=== PATIENT | female | born 1950 | race Caucasian/White ===

== ENCOUNTER 2022-07-12 13:16 | Inpatient (IN) | payer OTHER, SELFPAY ==
[2022-07-12 13:18] VITALS: BP 156/72; PULSE 76; RESP 14; TEMP 36.8; O2SAT 98; BMI 23.6
--- NOTE | 2022-07-12 13:42 | CT_ITS ---
HISTORY: Abdominal pain. TECHNIQUE: Helically acquired images were obtained of the abdomen and pelvis after the intravenous administration of 100mL Isovue-370. Oral contrast also administered. A radiation dose optimization technique was used for this scan. 357 images. COMPARISON: None. FINDINGS: LOWER CHEST: Bronchiectasis, mucous plugging, and multiple pulmonary nodules in the lung bases. BOWEL: Bowel including appendix nondilated. Colonic diverticulosis without focal inflammatory change observed. LIVER: Small cyst and calcifications at the tip. GALLBLADDER/BILIARY TREE: Moderate intrahepatic biliary ductal dilatation. Severely distended gallbladder and mildly dilated cystic duct. Mild pericholecystic fluid and nichole hepatis edema. 15 mm common bile duct with a 9 mm density in the distal duct. PANCREAS: Mild peripancreatic edema without necrosis or fluid collection. KIDNEYS: No hydronephrosis. Tiny bilateral cysts. SPLEEN/ADRENAL GLANDS: Unremarkable. VESSELS: No abdominal aortic aneurysm. Mild atherosclerosis. PELVIC ORGANS: Absent uterus. BONES: Moderate scoliosis. Degenerative change. CT/Abdomen/Pelvis WITH Contrast IMPRESSION: Moderate-severe biliary dilatation secondary to a 9 mm stone or mass in the distal common duct. Dilated gallbladder and cystic duct with pericholecystic fluid and edema in the nichole hepatis, suggesting acute cholecystitis. Mild acute pancreatitis. Colonic diverticulosis without acute diverticulitis. Small hepatic and renal cysts. Electronically Signed: Lily Diallo MD at 16:05 EDT ,
--- NOTE | 2022-07-12 13:44 | EX.ED.DYSGE1 ---
HPI History of Present Illness Chief Complaint: Abd Pain Informant: patient Onset/Context/Timing Onset: Days (3 days, worse today) Current Severity: Moderate Maximum Severity: Moderate Narrative Narrative: Patient presents with lower abdominal pain that wraps around to her back. Pain started 3 days ago but got significantly worse last evening and this morning. She does report some intermittent fever at home up to 101. No chest pain, cough, congestion. She denies nausea or vomiting. She has had increased urinary frequency. She was seen at the clinic in [place] where lab work was obtained. She states that she was told she had a mild UTI and was given with a believe is Bactrim. Patient's potassium returned at 2.7 and her liver function tests are elevated so she was sent to the emergency room. [facility] Medical History (Updated 07/12/22 @ 22:[address] Katja Laird MD) Cholelithiasis with cholecystitis and obstruction Hyperlipidemia Hypertension Post-menopausal Home Medications triamterene 37.5 mg-hydrochlorothiazide 25 mg tablet (Maxzide-25mg) 1 tab PO DAILY heart 07/12/22 [History Last Taken Unknown] Allergy/AdvReac Type Severity Reaction Status Date / Time No Known Allergies Allergy Verified 07/12/22 13:17 Surgical History History of History of hysterectomy Social History Smoking Status: Never smoker ROS ROS ED Constitutional Constitutional ED: Reports fever(s); Denies chills Eyes Eyes: Denies change in vision or discharge from eye(s) ENT ENT ED: Denies discharge from eye(s), rhinorrhea or sore throat Cardiovascular Cardiovascular: Denies chest pain or palpitations Respiratory/Chest Respiratory/Chest: Denies cough or dyspnea Gastrointestinal Gastrointestinal: Reports abdominal pain; Denies diarrhea, nausea or vomiting Genitourinary Genitourinary ED: Reports urinary frequency; Denies difficulty urinating or dysuria Musculoskeletal Musculoskeletal: Reports back pain; Denies extremity pain Integumentary Denies Abrasions or rash Neurologic Neurologic: Denies headache(s) or weakness Psychiatric Psychiatric: Denies anxiety or depression Allergic/Immunologic Allergic/Immunologic ED: Denies lip swelling or urticaria EXAM Physical Exam Const Vital Signs: 07/12/22 13:18 07/12/22 14:09 07/12/22 16:56 Temperature 98.3 F Temperature Source Temporal Pulse Rate 76 87 97 Respiratory Rate 14 14 14 Blood Pressure 156/72 H 153/75 H Blood Pressure Mean 100 101 Pulse Ox 98 99 94 Oxygen Delivery Method Room Air Room Air Room Air Positive well nourished and well developed General Appearance ED: well developed HEENT Reports normocephalic and head/scalp atraumatic Eyes PERRL and EOMs intact bilaterally Neck supple Chest Wall inspection of chest normal and palpation of chest normal Resp normal respiratory effort and clear to auscultation bilaterally Cardio regular rate and regular rhythm GI Auscultation: hypoactive bowel sounds Palpation: soft and tender LLQ and RLQ Extremity normal to inspection Neuro oriented x3 and no sensory deficits noted Sensorium / Orientation: alert Motor Exam: strength 5/5 throughout Psych mental status grossly normal Skin no rashes or lesions noted MDM MDM MDM Narrative Medical decision making narrative: EKG, lab work, CT scan of the abdomen pelvis obtained. Urinalysis ordered. Patient given small dose of fentanyl for pain. Lab Data Attestation: I reviewed the patient's lab results. Labs: Laboratory Results - last 24 hr 07/12/22 07/12/22 07/12/22 14:06 14:06 14:06 WBC 16.1 H RBC 4.72 Hgb 14.3 Hct 41.7 MCV 88.3 MCH 30.3 MCHC 34.3 RDW Std Deviation 43.4 RDW Coeff of Katherin 13.4 Plt Count 254 MPV 9.6 Immature Gran % (Auto) 0.400 Neut % (Auto) 90.8 H Lymph % (Auto) 4.4 L [place] % (Auto) 4.2 Eos % (Auto) 0.1 Baso % (Auto) 0.1 Absolute Neuts (auto) 14.6 H Absolute Lymphs (auto) 0.71 L Nucleated RBC % 0 Sodium 132 L Potassium 2.3 L* Chloride 91 L Carbon Dioxide 30.0 Anion Gap 11 BUN 12 Creatinine 1.16 H Estim Creat Clear Calc 36.20 Est GFR (MDRD) Af Amer 59 L Est GFR (MDRD) Non-Af 49 L BUN/Creatinine Ratio 10.3 Glucose 110 H Calcium 9.1 Phosphorus 2.3 L Magnesium 2.0 Total Bilirubin 4.60 H Direct Bilirubin 3.44 H AST 145 H ALT 277 H Alkaline Phosphatase 318 H Total Protein 8.1 Albumin 3.3 Globulin 4.8 H Lipase 85721 H Urine Color Urine Clarity Urine pH Ur Specific [place] Urine Protein Urine Glucose (UA) Urine Ketones Urine Occult Blood Urine Nitrite Urine Bilirubin Urine Urobilinogen Ur Leukocyte Esterase Urine RBC Urine WBC Ur Squamous Epith Cells Urine Bacteria WBC Casts Urine Mucus 07/12/22 14:20 WBC RBC Hgb Hct MCV MCH MCHC RDW Std Deviation RDW Coeff of Katherin Plt Count MPV Immature Gran % (Auto) Neut % (Auto) Lymph % (Auto) [place] % (Auto) Eos % (Auto) Baso % (Auto) Absolute Neuts (auto) Absolute Lymphs (auto) Nucleated RBC % Sodium Potassium Chloride Carbon Dioxide Anion Gap BUN Creatinine Estim Creat Clear Calc Est GFR (MDRD) Af Amer Est GFR (MDRD) Non-Af BUN/Creatinine Ratio Glucose Calcium Phosphorus Magnesium Total Bilirubin Direct Bilirubin AST ALT Alkaline Phosphatase Total Protein Albumin Globulin Lipase Urine Color Jana Urine Clarity Clear Urine pH 6.0 Ur Specific [place] 1.015 Urine Protein 30 H Urine Glucose (UA) Normal Urine Ketones 15 H Urine Occult Blood 150 H Urine Nitrite Negative Urine Bilirubin 3 H Urine Urobilinogen 4 H Ur Leukocyte Esterase 500 H Urine RBC 5-10 SEEN Urine WBC 25-50 SEEN Ur Squamous Epith Cells 25-50 SEEN Urine Bacteria 1+ WBC Casts 0-5 SEEN Urine Mucus 0 SEEN Radiography Diagnostic Testing: Clinical Impression(s) from Imaging Studies Abdomen/Pelvis CT 07/12/22 13:42 IMPRESSION: Moderate-severe biliary dilatation secondary to a 9 mm stone or mass in the distal common duct. Dilated gallbladder and cystic duct with pericholecystic fluid and edema in the nichole hepatis, suggesting acute cholecystitis. Mild acute pancreatitis. Colonic diverticulosis without acute diverticulitis. Small hepatic and renal cysts. Electronically Signed: Lily Diallo MD at 16:05 EDT , Treatment and Re-Evaluation Narrative: Patient's lab work returns with elevated white count of 16.1 with 91% neutrophils. Chemistry significant for sodium of 1 32, potassium 2.3, chloride 91. BUN and creatinine are unremarkable. Chemistry studies reveal a total bili of 4.6, direct bili 3.44, AST 145, ALT 277, alk phos 318. Lipase is 17,700. Urinalysis reveals 25-50 white cells with 25-50 epithelials. 1+ bacteria noted. Nitrites are negative. Urine culture was obtained. Patient was given a dose of Zosyn. CT scan reveals moderate to severe biliary dilatation secondary to a 9 mm stone or mass in the distal common duct. There is dilated gallbladder and cystic duct with pericholecystic fluid and edema suggesting acute cholecystitis. There is evidence of mild acute pancreatitis. Test results discussed with patient and family at bedside. I spoke with Dr. Carlos who presented to the emergency room to evaluate the patient. She will be admitted to Dr. Carlos's surface. Discharge Plan Dx/Rx/DC Orders Clinical Impression: Pancreatitis, Hypokalemia Disposition Disposition: Acute Care Hospital [facility] Discharge Date/Time: 07/12/22 18:31
[2022-07-12 14:09] VITALS: BP 153/75; PULSE 87; RESP 14; O2SAT 99
[2022-07-12 14:12] LABS: Absolute Lymphocyte Count 0.71 X10^3/uL (0.83-4.51); Absolute Neutrophil Count 14.6 X10^3/uL (2.0-7.7); Basophil# 0.02 X10^3/uL; Basophil% 0.1 % (0-1); Eosinophil# 0.01 X10^3/uL; Eosinophils% 0.1 % (0-5); Hematocrit 41.7 % (37-47); Hemoglobin 14.3 g/dL (12.0-15.0); Lymphocyte # 0.71 X10^3/ul (0.83-4.51); Lymphocyte % 4.4 % (19-41); Mean Corp Hgb Conc 34.3 g/dL (32-36); Mean Corpuscular Hgb 30.3 pg (27.0-32.0); Mean Corpuscular Volume 88.3 fL (81-99); Mean Platelet Vol. 9.6 fl (6.2-12.0); Monocyte# 0.68 X10^3/uL; Monocyte% 4.2 % (0-10); NRBC Flagged by Analyzer 0 % (0-5); Neutrophil # 14.62 X10^3/uL (2.7-7.7); Neutrophil % 90.8 % (47-70); Platelet Count 254 K/mm3 (150-450); RBC Distribution Width CV 13.4 % (11.6-14.6); RBC Distribution Width SD 43.4 fl (35.1-43.9); Red Blood Count 4.72 M/mm3 (4.2-5.4); White Blood Count 16.1 K/mm3 (4.4-11.0)
[2022-07-12 14:25] LABS: Mucous, Urine 0 SEEN /hpf (<or=2+)
[2022-07-12 14:28] LABS: Color, Urine Amber (Yellow); Glucose, Dipstick Normal (Normal); Ketone-Dipstick 15 mg/dl (Negative); Leukocyte Esterase-Dipstick 500 /ul (Negative); Nitrite-Dipstick Negative (Negative); Occult Blood-Urine 150 /ul (Negative); Protein-Dipstick 30 mg/dl (Negative); Specific Gravity, Urine 1.015 (1.002-1.030); Urine Clarity Clear (Clear); Urine Urobilinogen 4 mg/dl (Normal)
[2022-07-12 14:30] LABS: Urine Bilirubin Dipstick 3 mg/dL (Negative)
[2022-07-12 14:33] LABS: AST(SGOT) 145 U/L (15-37); Alanine Aminotransfer ALT/SGPT 277 U/L (13-56); Albumin, Serum 3.3 g/dL (3.2-5.0); Alkaline Phosphatase 318 U/L (45-117); Anion Gap 11 (5-15); BUN 12 mg/dL (7-18); BUN/Creat Ratio 10.3 RATIO (10-20); Bilirubin, Direct 3.44 mg/dL (0.00-0.30); Calcium,Total 9.1 mg/dL (8.5-10.1); Chloride 91 mmol/L (98-107); Creatinine, Serum 1.16 mg/dL (0.55-1.02); EST Glomerular Filtration Rate 49 mL/min (>60); Est Glom Filt Rate - Afr Amer 59 mL/min (>60); Globulin 4.8 g/dL (2.2-4.2); Glucose 110 mg/dL (74-106); Lipase 17701 U/L (73-393); Potassium 2.3 mmol/L (3.5-5.1); Protein, Total 8.1 g/dL (6.4-8.2); Sodium Level 132 mmol/L (136-145)
[2022-07-12 14:38] LABS: Bacteria 1+ /hpf (None Seen); Red Blood Cells-Urine 5-10 SEEN /hpf (0-5); Squamous Epithelial Cells - UA 25-50 SEEN /hpf (5-10); White Blood Cells 25-50 SEEN /hpf (0-5)
[2022-07-12 14:39] LABS: White Cell Cast 0-5 SEEN /lpf (None Seen)
--- NOTE | 2022-07-12 14:40 | EKG12_ITS ---
Test Reason : Blood Pressure : / mmHG Vent. Rate : 083 BPM Atrial Rate : 083 BPM P-R Int : 154 ms QRS Dur : 082 ms QT Int : 362 ms P-R-T Axes : 003 053 050 degrees QTc Int : 425 ms Normal sinus rhythm with sinus arrhythmia Nonspecific ST abnormality Abnormal ECG Confirmed by KANDIS LY, BROCK ([id number]), book editor BRENDA MCNAMARA ([id number]) on 07/13/2022 1:59:37 PM Referred By: PAULINA Confirmed By:BROCK MARQUIS MD
[2022-07-12] MEDS: fentaNYL 100 MCG/2 ML Ampul 12.5 MCG IV ×2 (14:45→18:05)
[2022-07-12] MEDS: Potassium Chloride 10mEq/100mL 10 MEQ/100 ML IV.SOLN. 100 MEQ IV BOLUS ×4 (15:46→19:23)
[2022-07-12 16:56] VITALS: PULSE 97; RESP 14; O2SAT 94
--- NOTE | 2022-07-12 17:55 | PCM.HP.STD ---
HPI - General General Date of Admission: 07/12/22 Date of Service: 07/12/22 Chief Complaint: abdominal pain HPI Narrative SANDRA WAYNE, is a 71 F who presents with abdominal pain, primarily right sided. She states that she has had severe pain for the past three days with nausea and emesis and elevated temperatures. She presented to a local clinic and was diagnosed with a UTI, but also she was found to have a potassium of 2.7 and elevated LFTs and thus referred to the ED. She states that she has had intermittent abdominal pain for the past year or two. She states that she has had nausea and emesis for several days. She has had no appetite since Wednesday. Workup in [facility] ED - elevated WBC of 16.1K with a left shift, CT scan revealed cholelithiasis and choledocholithiasis [facility] Medical History (Updated 07/12/22 @ 18:[address] Romy Carlos MD) Cholelithiasis with cholecystitis and obstruction Hyperlipidemia Hypertension Home Medications triamterene 37.5 mg-hydrochlorothiazide 25 mg tablet (Maxzide-25mg) 1 tab PO DAILY heart 07/12/22 [History Last Taken Unknown] Allergy/AdvReac Type Severity Reaction Status Date / Time No Known Allergies Allergy Verified 07/12/22 13:17 Surgical History History of History of hysterectomy Social History Smoking Status: Never smoker ROS Constitutional Constitutional: Reports chills, fatigue and fever(s) Eyes Eyes: Denies loss of vision ENT HEENT: Denies neck pain Cardiovascular Cardiovascular: Denies chest pain at rest or palpitations Respiratory/Chest Respiratory/Chest: Denies dyspnea on exertion or productive cough Gastrointestinal Gastrointestinal: Reports abdominal pain and other Details: see HPI Genitourinary Genitourinary: Denies dysuria or hematuria Musculoskeletal Musculoskeletal: Denies abnormal gait Integumentary Integumentary: Denies jaundice Vital Signs Vital Signs Vital Signs: 07/12/22 13:18 07/12/22 14:09 07/12/22 16:56 Temperature 98.3 F Temperature Source Temporal Pulse Rate 76 87 97 Respiratory Rate 14 14 14 Blood Pressure 156/72 H 153/75 H Blood Pressure Mean 100 101 Pulse Ox 98 99 94 Oxygen Delivery Method Room Air Room Air Room Air Weight Weight: 58.6 kg Body Mass Index (BMI) 23.6 Physical Exam Const oriented x3 Resp normal respiratory effort Auscultation: Negative for rales or wheezes Cardio regular rate GI GI Narrative: abdomen is soft but tender on right side to palpation with positive Cassidy's Extremity no clubbing, cyanosis or edema Results Medical Records Data Attestation: I reviewed the patient's medical records Lab / Micro Data Attestation: I reviewed the patient's lab results. Result Diagrams: 07/12/22 14:06 07/12/22 14:06 Labs: Laboratory Results - last 24 hr 07/12/22 14:06: WBC 16.1 H, RBC 4.72, Hgb 14.3, Hct 41.7, MCV 88.3, MCH 30.3, MCHC 34.3, RDW Std Deviation 43.4, RDW Coeff of Katherin 13.4, Plt Count 254, MPV 9.6, Immature Gran % (Auto) 0.400, Neut % (Auto) 90.8 H, Lymph % (Auto) 4.4 L, [place] % (Auto) 4.2, Eos % (Auto) 0.1, Baso % (Auto) 0.1, Absolute Neuts (auto) 14.6 H, Absolute Lymphs (auto) 0.71 L, Nucleated RBC % 0 07/12/22 14:06: Sodium 132 L, Potassium 2.3 L*, Chloride 91 L, Carbon Dioxide 30.0, Anion Gap 11, BUN 12, Creatinine 1.16 H, Estim Creat Clear Calc 36.20, Est GFR (MDRD) Af Amer 59 L, Est GFR (MDRD) Non-Af 49 L, BUN/Creatinine Ratio 10.3, Glucose 110 H, Calcium 9.1, Total Bilirubin 4.60 H, Direct Bilirubin 3.44 H, AST 145 H, ALT 277 H, Alkaline Phosphatase 318 H, Total Protein 8.1, Albumin 3.3, Globulin 4.8 H, Lipase 54754 H 07/12/22 14:20: Urine Color Jana, Urine Clarity Clear, Urine pH 6.0, Ur Specific [place] 1.015, Urine Protein 30 H, Urine Glucose (UA) Normal, Urine Ketones 15 H, Urine Occult Blood 150 H, Urine Nitrite Negative, Urine Bilirubin 3 H, Urine Urobilinogen 4 H, Ur Leukocyte Esterase 500 H, Urine RBC 5-10 SEEN, Urine WBC 25-50 SEEN, Ur Squamous Epith Cells 25-50 SEEN, Urine Bacteria 1+, WBC Casts 0-5 SEEN, Urine Mucus 0 SEEN Radiology Impression Abdomen/Pelvis CT 07/12/22 13:42 IMPRESSION: Moderate-severe biliary dilatation secondary to a 9 mm stone or mass in the distal common duct. Dilated gallbladder and cystic duct with pericholecystic fluid and edema in the nichole hepatis, suggesting acute cholecystitis. Mild acute pancreatitis. Colonic diverticulosis without acute diverticulitis. Small hepatic and renal cysts. Electronically Signed: Lily Diallo MD at 16:05 EDT , Assessment & Plan Assessment/Plan (1) Cholelithiasis with cholecystitis and obstruction: PLAN: Admit for IV hydration, antibiotics, pain medications and bowel rest. Consider ERCP and laparoscopic cholecystectomy in this hospital admission. I have discussed this with patient, her and daughter Will consult Internal medicine for management of patient's hypertension during this hospitalization
[2022-07-12 18:16] VITALS: BP 163/89; PULSE 98; RESP 15; TEMP 36.8; O2SAT 96
[2022-07-12 18:26] VITALS: BMI 10.5
[2022-07-12 18:38] VITALS: BP 123/63; PULSE 104; RESP 18; TEMP 37.9; O2SAT 93
[2022-07-12] MEDS: 0.9% Normal Saline 1,000 ML 125 ML IV (18:50)
[2022-07-12] MEDS: Ketorolac 15 MG/ML Vial IV (18:50)
--- NOTE | 2022-07-12 19:16 | CON.PCM.HO_ITS ---
Assessment & Plan Assessment/Plan (1) Cholelithiasis with cholecystitis and obstruction: PLAN: This 71-year-old female admitted with severe right-sided upper abdominal pain with radiation to right upper back, nausea and fever, CT abdomen findings consistent with acute cholecystitis with choledocholithiasis and mild acute pancreatitis 1. Acute severe cholecystitis and acute pancreatitis due to choledocholithiasis: CT abdomen findings individually reviewed and agreed with the report. Patient is being on surgical service. IV fluid normal saline at 125 mill per hour. Patient is on cefotetan. NPO. Plan is for ERCP tomorrow a.m. when lap vicky on coming Wednesday. Monitor intake and output. Liver chemistry, total bilirubin, leukocytosis with left shift and lipase are elevated. UA is abnormal, but looks contaminated as squamous epithelial cell 25-50 cells, WBC 25-50 cells, RBC 5-10, LE 500 but nitrite negative. Patient does not have dysuria therefore, I do not think patient has UTI 2. Severe hypokalemia: Potassium is 2.3 in ED. On IV KCl 40 mill equivalent bolus. Serum magnesium and phosphorus ordered. Recheck BMP in evening today. 3. Hypertension: At home, patient is on hydrochlorothiazide- triamterene which is held. Blood pressure currently is normal. 123/63, heart rate 104/min patient mild sinus tachycardia due to inflammation, acute cholecystitis, infection and pain. Monitor BP. Hydralazine 5 mg IV every 4 hourly as needed for systolic blood pressure more than 160 mmHg 4. Dyslipidemia: LDL 136 elevated HDL low 39. Patient not on any statin. When patient is allowed oral can start on atorvastatin 40 mg daily. VTE prophylaxis moderate risk Heparin 5000 units subcutaneous 3 times daily. H old the morning dose prior to ERCP on Wednesday and lap vicky on Wednesday Living will/advanced directive/end of life care: Patient does not have living will or advanced directive. Her is next to kin present in the room. After discussion of benefits/risks procedures involved with full code, DNR CC arrest and DNR CC, the patient and her opted for full code. For the present hospitalization, patient and her do want artificial life support including intubation, tube feed, ventilator and/chest compression, central venous catheter, vasopressor and DC shock if needed. They will discuss in detail about future elements of advanced directive in detail with PCP later on. Total time spent in [id number] encounter in discussion of advanced directive 16 minutes. Laboratory Results 07/12/22 14:06: WBC 16.1 H, RBC 4.72, Hgb 14.3, Hct 41.7, MCV 88.3, MCH 30.3, MCHC 34.3, RDW Std Deviation 43.4, RDW Coeff of Katherin 13.4, Plt Count 254, MPV 9.6, Immature Gran % (Auto) 0.400, Neut % (Auto) 90.8 H, Lymph % (Auto) 4.4 L, [place] % (Auto) 4.2, Eos % (Auto) 0.1, Baso % (Auto) 0.1, Absolute Neuts (auto) 14.6 H, Absolute Lymphs (auto) 0.71 L, Nucleated RBC % 0 07/12/22 14:06: Sodium 132 L, Potassium 2.3 L*, Chloride 91 L, Carbon Dioxide 30.0, Anion Gap 11, BUN 12, Creatinine 1.16 H, Estim Creat Clear Calc 36.20, Est GFR (MDRD) Af Amer 59 L, Est GFR (MDRD) Non-Af 49 L, BUN/Creatinine Ratio 10.3, Glucose 110 H, Calcium 9.1, Total Bilirubin 4.60 H, Direct Bilirubin 3.44 H, AST 145 H, ALT 277 H, Alkaline Phosphatase 318 H, Total Protein 8.1, Albumin 3.3, Globulin 4.8 H, Lipase 43999 H 07/12/22 14:20: Urine Color Jana, Urine Clarity Clear, Urine pH 6.0, Ur Specific [place] 1.015, Urine Protein 30 H, Urine Glucose (UA) Normal, Urine Ketones 15 H, Urine Occult Blood 150 H, Urine Nitrite Negative, Urine Bilirubin 3 H, Urine Urobilinogen 4 H, Ur Leukocyte Esterase 500 H, Urine RBC 5-10 SEEN, Urine WBC 25-50 SEEN, Ur Squamous Epith Cells 25-50 SEEN, Urine Bacteria 1+, WBC Casts 0-5 SEEN, Urine Mucus 0 SEEN Clinical Impression(s) from Imaging Studies Abdomen/Pelvis CT 07/12/22 13:42 IMPRESSION: Moderate-severe biliary dilatation secondary to a 9 mm stone or mass in the distal common duct. Dilated gallbladder and cystic duct with pericholecystic fluid and edema in the nichole hepatis, suggesting acute cholecystitis. Mild acute pancreatitis. Colonic diverticulosis without acute diverticulitis. Small hepatic and renal cysts. HPI Consult Data Date of Consult: 07/12/22 HPI Narrative Reason for Consultation: Medical management for severe hypokalemia along with acute cholecystitis, HPI Narrative: SANDRA WAYNE, chioam a 71 F was brought to ED for severe lower abdominal pain, 10/10 intensity continuous since last 3 days started on 07/09 which wraps around the abdomen to the right upper back. Patient states for last 1 month she was having on and off pain moderate intensity, intermittent 5-6/10 intensity and it used to go away spontaneously. At this time the pain is continuous. She also had fever and chills, temperature 101 at home. She went to clinic on [address] and lab work was done. Abnormal lab findings were severe hypokalemia, potassium 2.7, total bilirubin 6.6, elevated liver chemistry, ALT 286, AST 209, alkaline phosphatase 309. Leukocytosis 18.4 thousand, absolute neutrophil 15,000. Besides that patient also has hyponatremia and hypochloremia, 133 and 91 respectively LDL 136, HDL 39, triglycerides 71 and non-HDL 153. In the ED, repeat lab work was done, and lab abnormalities were similar with t otal bili 4.6, direct bilirubin 3.4, hypokalemia, hyponatremia, hypochloremia elevated liver chemistry and leukocytosis with left shift. CT abdomen/pelvis was done which shows moderate to severe biliary dilatation secondary to 900 stone/mass in the distal CBD. Dilated GB and cystic duct with pericholecystic fluid and edema in 4 thighplasty suggesting acute cholecystitis. Mild acute pancreatitis. Colonic diverticulosis without acute diverticulitis. Patient is admitted under surgical service Dr. Carlos and hospitalist asked to manage medical conditions including hypokalemia and hypertension Past medical history: Hypertension, dyslipidemia. Denies cardiac conditions including coronary artery disease, CHF or arrhythmia. Denies pulmonary disease including COPD/asthma. No stroke or peripheral arterial disease. No history of smoking or chronic alcohol use. [facility] Medical History Cholelithiasis with cholecystitis and obstruction Hyperlipidemia Hypertension Home Medications triamterene 37.5 mg-hydrochlorothiazide 25 mg tablet (Maxzide-25mg) 1 tab PO DAILY heart 07/12/22 [History Last Taken Unknown] Allergy/AdvReac Type Severity Reaction Status Date / Time No Known Allergies Allergy Verified 07/12/22 13:17 Surgical History History of History of hysterectomy Social History Smoking Status: Never smoker ROS ROS Narrative Constitutional: Reports fatigue and weakness. Fever and chills HEENT: Reports systems reviewed and no addt'l complaints, except as documented Respiratory/Chest: Denies chest pain, shortness of breath at rest or with exertion Gastrointestinal: Denies vomiting, hematemesis, melena and hematochezia. Rest as described in HPI. No abdominal distention Genitourinary: Denies burning urination or new urinary tract symptoms Musculoskeletal: No joint pain or limited range of motion Neurologic: Denies seizure-like activity. No focal weakness or numbness or tingling skin: No ulcer. No rash Endocrinology: Mild hyperglycemia. Reports systems reviewed and no addt'l complaints, except as documented Hematologic/Lymphatic: Reports systems reviewed and no addt'l complaints, except as documented Rest 14 ROS are negative except as mentioned in HPI Physical Exam Narrative General: Alert, Oriented x3, Cooperative HEENT: Atraumatic, PERRLA, EOMI, Normocephalic Oral: Oral mucosa is dry. No Gingival or Mucosal Lesions/ Ulcerations Neck: Supple, No JVD, Negative Carotid Bruits Lungs: Air entry equal in bilateral lung bases. No crepitation/rhonchi Cardiovascular: Sinus tachycardia, regular rhythm, Normal S1, Normal S2, No murmurs Abdomen: Bowel Sounds Present, tenderness over right upper and lower quadrant and right upper back. Mild voluntary guarding. No rigidity. : No renal angle tenderness. No suprapubic tenderness. Extremities: No edema, Capillary Refill Less than 3 Seconds Skin: No rashes, No breakdown Musculoskeletal: No Tenderness to Palpation of Joints or Extremities. ROM full. Neurological: Cranial nerves II-XII grossly intact, DTR 2+/4, no focal neurological deficit. Psych/Mental Status: Normal Affect, Appropriate. Lab / Micro Data Result Diagrams: 07/12/22 14:06 07/12/22 14:06 Labs: Laboratory Results - last 24 hr 07/12/22 14:06: WBC 16.1 H, RBC 4.72, Hgb 14.3, Hct 41.7, MCV 88.3, MCH 30.3, MCHC 34.3, RDW Std Deviation 43.4, RDW Coeff of Katherin 13.4, Plt Count 254, MPV 9.6, Immature Gran % (Auto) 0.400, Neut % (Auto) 90.8 H, Lymph % (Auto) 4.4 L, [place] % (Auto) 4.2, Eos % (Auto) 0.1, Baso % (Auto) 0.1, Absolute Neuts (auto) 14.6 H, Absolute Lymphs (auto) 0.71 L, Nucleated RBC % 0 07/12/22 14:06: Sodium 132 L, Potassium 2.3 L*, Chloride 91 L, Carbon Dioxide 30.0, Anion Gap 11, BUN 12, Creatinine 1.16 H, Estim Creat Clear Calc 36.20, Est GFR (MDRD) Af Amer 59 L, Est GFR (MDRD) Non-Af 49 L, BUN/Creatinine Ratio 10.3, Glucose 110 H, Calcium 9.1, Total Bilirubin 4.60 H, Direct Bilirubin 3.44 H, AST 145 H, ALT 277 H, Alkaline Phosphatase 318 H, Total Protein 8.1, Albumin 3.3, Globulin 4.8 H, Lipase 06573 H 07/12/22 14:20: Urine Color Jana, Urine Clarity Clear, Urine pH 6.0, Ur Specific [place] 1.015, Urine Protein 30 H, Urine Glucose (UA) Normal, Urine Ketones 15 H, Urine Occult Blood 150 H, Urine Nitrite Negative, Urine Bilirubin 3 H, Urine Urobilinogen 4 H, Ur Leukocyte Esterase 500 H, Urine RBC 5-10 SEEN, Urine WBC 25-50 SEEN, Ur Squamous Epith Cells 25-50 SEEN, Urine Bacteria 1+, WBC Casts 0-5 SEEN, Urine Mucus 0 SEEN Radiology Impression Abdomen/Pelvis CT 07/12/22 13:42 IMPRESSION: Moderate-severe biliary dilatation secondary to a 9 mm stone or mass in the distal common duct. Dilated gallbladder and cystic duct with pericholecystic fluid and edema in the nichole hepatis, suggesting acute cholecystitis. Mild acute pancreatitis. Colonic diverticulosis without acute diverticulitis. Small hepatic and renal cysts. Electronically Signed: Lily Diallo MD at 16:05 EDT , Charges/Coding Visit Charges Office Visits / Consults: 12605 OP Consult L4 Procedures Hospitalists Procedures: [id number] Advncd Care Plan 30 Min
[2022-07-12 19:52] LABS: Phosphorus 2.3 mg/dL (2.5-4.9)
[2022-07-12] MEDS: HYDROmorphone 0.5 MG/0.5 ML SYRINGE IV (20:11)
[2022-07-12] MEDS: 0.9% Saline Lock 10 ML Syringe IV (20:11)
--- NOTE | 2022-07-12 21:06 | RAD_ITS ---
STUDY: X-RAY CHEST REASON FOR EXAM: Female, 71 years old. Bronchiectasis, pre op TECHNIQUE: AP portable COMPARISON: None. FINDINGS: Mild chronic interstitial thickening in the lower lobes. There is no demonstrated pleural abnormality. Normal size heart. Normal mediastinum and hardeep. Normal visualized pulmonary arteries. Normal visualized aortic arch and descending thoracic aorta. Dorsal spine demonstrates scoliosis and degenerative change. Normal visualized ribs, clavicles, and shoulders. There is no demonstrated abnormality of the visualized soft tissue structures of the upper abdomen. RAD/Chest 1 View (Portable) IMPRESSION: Mild chronic bibasilar interstitial thickening. No acute cardiopulmonary pathology Electronically Signed: Hever Potts MD at 22:40 EDT ,
[2022-07-12 21:48] VITALS: BP 109/63; PULSE 83; RESP 16; TEMP 36.6; O2SAT 92
[2022-07-12] MEDS: Heparin Injection (Vial) 5,000 UNIT/ML VIAL 5000 UNIT SC (21:56)
[2022-07-12 22:57] LABS: Anion Gap 10 (5-15); BUN 10 mg/dL (7-18); BUN/Creat Ratio 8.3 RATIO (10-20); Calcium,Total 7.9 mg/dL (8.5-10.1); Chloride 96 mmol/L (98-107); Creatinine, Serum 1.21 mg/dL (0.55-1.02); EST Glomerular Filtration Rate 47 mL/min (>60); Est Glom Filt Rate - Afr Amer 57 mL/min (>60); Estimated Creatinine Clearance 18.19 ml/min; Glucose 113 mg/dL (74-106); Potassium 2.4 mmol/L (3.5-5.1); Sodium Level 134 mmol/L (136-145)
[2022-07-13] VITALS (11 sets, daily range): BP systolic 98–122; BP diastolic 55–73; PULSE 70–98; RESP 16–18; TEMP 36.4–36.9; O2SAT 91–97
[2022-07-13] MEDS: HYDROmorphone 0.5 MG/0.5 ML SYRINGE IV ×2 (00:52→05:53)
[2022-07-13] MEDS: 0.9% Saline Lock 10 ML Syringe IV ×3 (00:53→15:36)
[2022-07-13] MEDS: 0.9% Normal Saline 1,000 ML 125 ML IV ×2 (03:56→15:29)
[2022-07-13] MEDS: Ketorolac 15 MG/ML Vial IV ×3 (05:47→21:30)
[2022-07-13 07:04] LABS: Absolute Lymphocyte Count 0.65 X10^3/uL (0.83-4.51); Absolute Neutrophil Count 15.1 X10^3/uL (2.0-7.7); Basophil# 0.05 X10^3/uL; Basophil% 0.3 % (0-1); Eosinophils% 0.6 % (0-5); Hematocrit 36.4 % (37-47); Hemoglobin 13.6 g/dL (12.0-15.0); Lymphocyte # 0.65 X10^3/ul (0.83-4.51); Lymphocyte % 3.9 % (19-41); Mean Corp Hgb Conc 37.4 g/dL (32-36); Mean Corpuscular Hgb 32.5 pg (27.0-32.0); Mean Corpuscular Volume 87.1 fL (81-99); Mean Platelet Vol. 10.8 fl (6.2-12.0); Monocyte# 0.75 X10^3/uL; Monocyte% 4.5 % (0-10); NRBC Flagged by Analyzer 0 % (0-5); Neutrophil % 90.1 % (47-70); Platelet Count 192 K/mm3 (150-450); RBC Distribution Width SD 44.9 fl (35.1-43.9); Red Blood Count 4.18 M/mm3 (4.2-5.4); White Blood Count 16.8 K/mm3 (4.4-11.0)
--- NOTE | 2022-07-13 07:11 | RAD_ITS ---
EXAM: INTRAOPERATIVE CHOLANGIOGRAM FLUOROSCOPY TIME: 140 seconds RADIATION DOSE: 35 mGy TOTAL NUMBER OF IMAGES: 1 COMPARISON: None. PROVIDED CLINICAL HISTORY: STONES PAIN TECHNIQUE: The examination was performed with physician in attendance. Under fluoroscopic observation, fluoroscopic images were obtained in the operating room. FINDINGS: First image demonstrates surgical instruments overlying the [id number]. Contrast is identified in a cannulated common bile duct. Retrograde contrast is notseen in the pancreatic duct. Contrast is not noted in the proximal duodenum. Contrast is seen in the intrahepatic ducts. RAD/ERCP Biliary/Pancreas IMPRESSION: Fluoroscopic assistance images were obtained. Pertinent findings noted above. Electronically Signed: Isaías Linda MD at 14:45 EDT ,
[2022-07-13 07:23] LABS: Partial Thromboplast Time 30.2 Seconds (24.1-36.2)
[2022-07-13 07:31] LABS: Hemoglobin A1c 5.5 % (3.8-5.6)
[2022-07-13 07:40] LABS: Lipase 6858 U/L (73-393); Phosphorus 3.8 mg/dL (2.5-4.9)
[2022-07-13 07:42] LABS: ALB/GLOB Ratio 0.6 RATIO (0.9-2.4); AST(SGOT) 92 U/L (15-37); Alanine Aminotransfer ALT/SGPT 183 U/L (13-56); Albumin, Serum 2.4 g/dL (3.2-5.0); Alkaline Phosphatase 280 U/L (45-117); Anion Gap 8 (5-15); BUN 12 mg/dL (7-18); BUN/Creat Ratio 12.7 RATIO (10-20); CPK Total, Creatine Kinase 62 U/L (26-192); Calcium,Total 7.7 mg/dL (8.5-10.1); Chloride 101 mmol/L (98-107); Creatinine, Serum 0.94 mg/dL (0.55-1.02); EST Glomerular Filtration Rate 62 mL/min (>60); Est Glom Filt Rate - Afr Amer 75 mL/min (>60); Estimated Creatinine Clearance 44.67 ml/min; Globulin 3.8 g/dL (2.2-4.2); Glucose 95 mg/dL (74-106); Potassium 3.2 mmol/L (3.5-5.1); Protein, Total 6.2 g/dL (6.4-8.2); Sodium Level 137 mmol/L (136-145)
--- NOTE | 2022-07-13 07:46 | PCM.PN.SRG ---
Subjective Subjective Patient is the pain medication is helping. She is not nauseous today. She describes that her symptoms started about 3 days ago. She describes abdominal pain radiating to the back. Objective Data Objective Data Vital Signs: Vital Signs Temp Pulse Resp BP Pulse Ox O2 Del Method 98.3 F 70 16 114/73 94 Room Air 07/13/22 04:11 07/13/22 04:11 07/13/22 04:11 07/13/22 04:11 07/13/22 04:11 07/13/22 04:11 Oxygen Delivery Method Room Air Weight: 135 lb 5.821 oz Body Mass Index (BMI) 10.5 Intake & Output: Intake and Output for Last 24 Hours 07/11/22 07/12/22 07/13/22 23:59 23:59 23:59 Intake Total 500 / 500 1101 / 1101 Output Total 400 / 400 Balance 500 / 500 701 / 701 Lab / Micro Data Result Diagrams: 07/13/22 06:20 07/13/22 06:20 Labs: Laboratory Results - last 24 hr 07/12/22 14:06: WBC 16.1 H, RBC 4.72, Hgb 14.3, Hct 41.7, MCV 88.3, MCH 30.3, MCHC 34.3, RDW Std Deviation 43.4, RDW Coeff of Katherin 13.4, Plt Count 254, MPV 9.6, Immature Gran % (Auto) 0.400, Neut % (Auto) 90.8 H, Lymph % (Auto) 4.4 L, [place] % (Auto) 4.2, Eos % (Auto) 0.1, Baso % (Auto) 0.1, Absolute Neuts (auto) 14.6 H, Absolute Lymphs (auto) 0.71 L, Nucleated RBC % 0 07/12/22 14:06: Sodium 132 L, Potassium 2.3 L*, Chloride 91 L, Carbon Dioxide 30.0, Anion Gap 11, BUN 12, Creatinine 1.16 H, Estim Creat Clear Calc 36.20, Est GFR (MDRD) Af Amer 59 L, Est GFR (MDRD) Non-Af 49 L, BUN/Creatinine Ratio 10.3, Glucose 110 H, Calcium 9.1, Total Bilirubin 4.60 H, Direct Bilirubin 3.44 H, AST 145 H, ALT 277 H, Alkaline Phosphatase 318 H, Total Protein 8.1, Albumin 3.3, Globulin 4.8 H, Lipase 01326 H 07/12/22 14:06: Phosphorus 2.3 L, Magnesium 2.0 07/12/22 14:20: Urine Color Jana, Urine Clarity Clear, Urine pH 6.0, Ur Specific [place] 1.015, Urine Protein 30 H, Urine Glucose (UA) Normal, Urine Ketones 15 H, Urine Occult Blood 150 H, Urine Nitrite Negative, Urine Bilirubin 3 H, Urine Urobilinogen 4 H, Ur Leukocyte Esterase 500 H, Urine RBC 5-10 SEEN, Urine WBC 25-50 SEEN, Ur Squamous Epith Cells 25-50 SEEN, Urine Bacteria 1+, WBC Casts 0-5 SEEN, Urine Mucus 0 SEEN 07/12/22 22:30: Sodium 134 L, Potassium 2.4 L*, Chloride 96 L, Carbon Dioxide 28.0, Anion Gap 10, BUN 10, Creatinine 1.21 H, Estim Creat Clear Calc 18.19, Est GFR (MDRD) Af Amer 57 L, Est GFR (MDRD) Non-Af 47 L, BUN/Creatinine Ratio 8.3 L, Glucose 113 H, Calcium 7.9 L 07/13/22 06:20: WBC 16.8 H, RBC 4.18 L, Hgb 13.6, Hct 36.4 L, MCV 87.1, MCH 32.5 H, MCHC 37.4 H D, RDW Std Deviation 44.9 H, RDW Coeff of Katherin 14.0, Plt Count 192, MPV 10.8, Immature Gran % (Auto) 0.600, Neut % (Auto) 90.1 H, Lymph % (Auto) 3.9 L, [place] % (Auto) 4.5, Eos % (Auto) 0.6, Baso % (Auto) 0.3, Absolute Neuts (auto) 15.1 H, Absolute Lymphs (auto) 0.65 L, Nucleated RBC % 0 07/13/22 06:20: Sodium 137, Potassium 3.2 L, Chloride 101, Carbon Dioxide 28.0, Anion Gap 8, BUN 12, Creatinine 0.94, Estim Creat Clear Calc 44.67, Est GFR (MDRD) Af Amer 75, Est GFR (MDRD) Non-Af 62, BUN/Creatinine Ratio 12.7, Glucose 95, Calcium 7.7 L, Total Bilirubin 6.10 H, AST 92 H, ALT 183 H, Alkaline Phosphatase 280 H, Total Creatine Kinase 62, Total Protein 6.2 L, Albumin 2.4 L, Globulin 3.8, Albumin/Globulin Ratio 0.6 L 07/13/22 06:20: Hemoglobin A1c 5.5 07/13/22 06:20: Phosphorus 3.8 07/13/22 06:20: APTT 30.2 07/13/22 06:20: Lipase 6858 H Radiography Diagnostic Testing: Radiology Impression Abdomen/Pelvis CT 07/12/22 13:42 IMPRESSION: Moderate-severe biliary dilatation secondary to a 9 mm stone or mass in the distal common duct. Dilated gallbladder and cystic duct with pericholecystic fluid and edema in the nichole hepatis, suggesting acute cholecystitis. Mild acute pancreatitis. Colonic diverticulosis without acute diverticulitis. Small hepatic and renal cysts. Electronically Signed: Lily Diallo MD at 16:05 EDT , Chest X-Ray 07/12/22 21:06 IMPRESSION: Mild chronic bibasilar interstitial thickening. No acute cardiopulmonary pathology Electronically Signed: Hever Potts MD at 22:40 EDT , Physical Exam Const oriented x3 Resp normal respiratory effort Cardio regular rate and regular rhythm GI soft to palpation Palpation: tender epigastric and RUQ Extremity normal to inspection Assessment & Plan Assessment/Plan (1) Pancreatitis: (2) Choledocholithiasis with acute cholecystitis with obstruction: PLAN: Plan The patient has biliary obstruction from a 9 mm object in the Distal common bile duct which is called stone versus mass. Patient also has gallstone pancreatitis and likely acute cholecystitis. Patient was started on antibiotics and her potassium was replaced last night. I plan for ERCP this afternoon with stone removal or stent placement. I discussed ERCP in detail with the patient. I discussed the risks including but not limited to bleeding, infection, perforation of the bile duct or bowel, worsening of pancreatitis. I also discussed possibility of stent placement if I am unable to remove the stone. Patient understands all the risks and is when to proceed with ERCP this afternoon. August Parekh MD Pager: [facility] [address] [place] [address] [address] [place] [phone] Office:
--- NOTE | 2022-07-13 07:53 | PN.SURG_ITS ---
Subjective Subjective patient with minimal improvement in abdominal pain Objective Data Objective Data Vital Signs: Vital Signs Temp Pulse Resp BP Pulse Ox O2 Del Method 98.3 F 70 16 114/73 91 Room Air 07/13/22 04:11 07/13/22 04:11 07/13/22 04:11 07/13/22 04:11 07/13/22 07:35 07/13/22 07:35 Oxygen Delivery Method Room Air Weight: 61.4 kg Body Mass Index (BMI) 10.5 Intake & Output: Intake and Output for Last 24 Hours 07/11/22 07/12/22 07/13/22 23:59 23:59 23:59 Intake Total 500 / 500 1101 / 1101 Output Total 400 / 400 Balance 500 / 500 701 / 701 Lab / Micro Data Attestation: I reviewed the patient's lab results. Result Diagrams: 07/13/22 06:20 07/13/22 06:20 Labs: Laboratory Results - last 24 hr 07/12/22 14:06: WBC 16.1 H, RBC 4.72, Hgb 14.3, Hct 41.7, MCV 88.3, MCH 30.3, MCHC 34.3, RDW Std Deviation 43.4, RDW Coeff of Katherin 13.4, Plt Count 254, MPV 9.6, Immature Gran % (Auto) 0.400, Neut % (Auto) 90.8 H, Lymph % (Auto) 4.4 L, [place] % (Auto) 4.2, Eos % (Auto) 0.1, Baso % (Auto) 0.1, Absolute Neuts (auto) 14.6 H, Absolute Lymphs (auto) 0.71 L, Nucleated RBC % 0 07/12/22 14:06: Sodium 132 L, Potassium 2.3 L*, Chloride 91 L, Carbon Dioxide 30.0, Anion Gap 11, BUN 12, Creatinine 1.16 H, Estim Creat Clear Calc 36.20, Est GFR (MDRD) Af Amer 59 L, Est GFR (MDRD) Non-Af 49 L, BUN/Creatinine Ratio 10.3, Glucose 110 H, Calcium 9.1, Total Bilirubin 4.60 H, Direct Bilirubin 3.44 H, AST 145 H, ALT 277 H, Alkaline Phosphatase 318 H, Total Protein 8.1, Albumin 3.3, Globulin 4.8 H, Lipase 78551 H 07/12/22 14:06: Phosphorus 2.3 L, Magnesium 2.0 07/12/22 14:20: Urine Color Jana, Urine Clarity Clear, Urine pH 6.0, Ur Specific [place] 1.015, Urine Protein 30 H, Urine Glucose (UA) Normal, Urine Ketones 15 H, Urine Occult Blood 150 H, Urine Nitrite Negative, Urine Bilirubin 3 H, Urine Urobilinogen 4 H, Ur Leukocyte Esterase 500 H, Urine RBC 5-10 SEEN, Urine WBC 25-50 SEEN, Ur Squamous Epith Cells 25-50 SEEN, Urine Bacteria 1+, WBC Casts 0-5 SEEN, Urine Mucus 0 SEEN 07/12/22 22:30: Sodium 134 L, Potassium 2.4 L*, Chloride 96 L, Carbon Dioxide 28.0, Anion Gap 10, BUN 10, Creatinine 1.21 H, Estim Creat Clear Calc 18.19, Est GFR (MDRD) Af Amer 57 L, Est GFR (MDRD) Non-Af 47 L, BUN/Creatinine Ratio 8.3 L, Glucose 113 H, Calcium 7.9 L 07/13/22 06:20: WBC 16.8 H, RBC 4.18 L, Hgb 13.6, Hct 36.4 L, MCV 87.1, MCH 32.5 H, MCHC 37.4 H D, RDW Std Deviation 44.9 H, RDW Coeff of Katherin 14.0, Plt Count 192, MPV 10.8, Immature Gran % (Auto) 0.600, Neut % (Auto) 90.1 H, Lymph % (Auto) 3.9 L, [place] % (Auto) 4.5, Eos % (Auto) 0.6, Baso % (Auto) 0.3, Absolute Neuts (auto) 15.1 H, Absolute Lymphs (auto) 0.65 L, Nucleated RBC % 0 07/13/22 06:20: Sodium 137, Potassium 3.2 L, Chloride 101, Carbon Dioxide 28.0, Anion Gap 8, BUN 12, Creatinine 0.94, Estim Creat Clear Calc 44.67, Est GFR (MDRD) Af Amer 75, Est GFR (MDRD) Non-Af 62, BUN/Creatinine Ratio 12.7, Glucose 95, Calcium 7.7 L, Total Bilirubin 6.10 H, AST 92 H, ALT 183 H, Alkaline Phosphatase 280 H, Total Creatine Kinase 62, Total Protein 6.2 L, Albumin 2.4 L, Globulin 3.8, Albumin/Globulin Ratio 0.6 L 07/13/22 06:20: Hemoglobin A1c 5.5 07/13/22 06:20: Phosphorus 3.8 07/13/22 06:20: APTT 30.2 07/13/22 06:20: Lipase 6858 H Radiography Diagnostic Testing: Radiology Impression Abdomen/Pelvis CT 07/12/22 13:42 IMPRESSION: Moderate-severe biliary dilatation secondary to a 9 mm stone or mass in the distal common duct. Dilated gallbladder and cystic duct with pericholecystic fluid and edema in the nichole hepatis, suggesting acute cholecystitis. Mild acute pancreatitis. Colonic diverticulosis without acute diverticulitis. Small hepatic and renal cysts. Electronically Signed: Lily Diallo MD at 16:05 EDT , Chest X-Ray 07/12/22 21:06 IMPRESSION: Mild chronic bibasilar interstitial thickening. No acute cardiopulmonary pathology Electronically Signed: Hever Potts MD at 22:40 EDT , Physical Exam Const alert and oriented x3 Resp normal respiratory effort Effort and Inspection: able to speak in complete sentences GI GI Narrative: abdomen is tenderness in RUQ, positive Cassidy's Assessment & Plan Assessment/Plan (1) Choledocholithiasis with acute cholecystitis with obstruction: PLAN: Dr. Parekh will be proceeding with ERCP today
--- NOTE | 2022-07-13 08:26 | PCM.PN.HOSP ---
Subjective Subjective Pt on phone, looked at me after I introduced myself, looked away and kept on talking on the phone. Objective Data Objective Data Vital Signs: Vital Signs Temp Pulse Resp BP Pulse Ox O2 Del Method 36.8 C 70 16 114/73 91 Room Air 07/13/22 04:11 07/13/22 04:11 07/13/22 04:11 07/13/22 04:11 07/13/22 07:35 07/13/22 07:35 Oxygen Delivery Method Room Air Weight: 61.4 kg Body Mass Index (BMI) 10.5 Intake & Output: Intake and Output for Last 24 Hours 07/11/22 07/12/22 07/13/22 23:59 23:59 23:59 Intake Total 500 / 500 1101 / 1101 Output Total 400 / 400 Balance 500 / 500 701 / 701 Lab / Micro Data Result Diagrams: 07/13/22 06:20 07/13/22 06:20 Labs: Laboratory Results - last 24 hr 07/12/22 14:06: WBC 16.1 H, RBC 4.72, Hgb 14.3, Hct 41.7, MCV 88.3, MCH 30.3, MCHC 34.3, RDW Std Deviation 43.4, RDW Coeff of Katherin 13.4, Plt Count 254, MPV 9.6, Immature Gran % (Auto) 0.400, Neut % (Auto) 90.8 H, Lymph % (Auto) 4.4 L, Dauphin % (Auto) 4.2, Eos % (Auto) 0.1, Baso % (Auto) 0.1, Absolute Neuts (auto) 14.6 H, Absolute Lymphs (auto) 0.71 L, Nucleated RBC % 0 07/12/22 14:06: Sodium 132 L, Potassium 2.3 L*, Chloride 91 L, Carbon Dioxide 30.0, Anion Gap 11, BUN 12, Creatinine 1.16 H, Estim Creat Clear Calc 36.20, Est GFR (MDRD) Af Amer 59 L, Est GFR (MDRD) Non-Af 49 L, BUN/Creatinine Ratio 10.3, Glucose 110 H, Calcium 9.1, Total Bilirubin 4.60 H, Direct Bilirubin 3.44 H, AST 145 H, ALT 277 H, Alkaline Phosphatase 318 H, Total Protein 8.1, Albumin 3.3, Globulin 4.8 H, Lipase 54417 H 07/12/22 14:06: Phosphorus 2.3 L, Magnesium 2.0 07/12/22 14:20: Urine Color Jana, Urine Clarity Clear, Urine pH 6.0, Ur Specific Stewardson 1.015, Urine Protein 30 H, Urine Glucose (UA) Normal, Urine Ketones 15 H, Urine Occult Blood 150 H, Urine Nitrite Negative, Urine Bilirubin 3 H, Urine Urobilinogen 4 H, Ur Leukocyte Esterase 500 H, Urine RBC 5-10 SEEN, Urine WBC 25-50 SEEN, Ur Squamous Epith Cells 25-50 SEEN, Urine Bacteria 1+, WBC Casts 0-5 SEEN, Urine Mucus 0 SEEN 07/12/22 22:30: Sodium 134 L, Potassium 2.4 L*, Chloride 96 L, Carbon Dioxide 28.0, Anion Gap 10, BUN 10, Creatinine 1.21 H, Estim Creat Clear Calc 18.19, Est GFR (MDRD) Af Amer 57 L, Est GFR (MDRD) Non-Af 47 L, BUN/Creatinine Ratio 8.3 L, Glucose 113 H, Calcium 7.9 L 07/13/22 06:20: WBC 16.8 H, RBC 4.18 L, Hgb 13.6, Hct 36.4 L, MCV 87.1, MCH 32.5 H, MCHC 37.4 H D, RDW Std Deviation 44.9 H, RDW Coeff of Katherin 14.0, Plt Count 192, MPV 10.8, Immature Gran % (Auto) 0.600, Neut % (Auto) 90.1 H, Lymph % (Auto) 3.9 L, Dauphin % (Auto) 4.5, Eos % (Auto) 0.6, Baso % (Auto) 0.3, Absolute Neuts (auto) 15.1 H, Absolute Lymphs (auto) 0.65 L, Nucleated RBC % 0 07/13/22 06:20: Sodium 137, Potassium 3.2 L, Chloride 101, Carbon Dioxide 28.0, Anion Gap 8, BUN 12, Creatinine 0.94, Estim Creat Clear Calc 44.67, Est GFR (MDRD) Af Amer 75, Est GFR (MDRD) Non-Af 62, BUN/Creatinine Ratio 12.7, Glucose 95, Calcium 7.7 L, Total Bilirubin 6.10 H, AST 92 H, ALT 183 H, Alkaline Phosphatase 280 H, Total Creatine Kinase 62, Total Protein 6.2 L, Albumin 2.4 L, Globulin 3.8, Albumin/Globulin Ratio 0.6 L 07/13/22 06:20: Hemoglobin A1c 5.5 07/13/22 06:20: Phosphorus 3.8 07/13/22 06:20: APTT 30.2 07/13/22 06:20: Lipase 6858 H Radiography Diagnostic Testing: Radiology Impression Abdomen/Pelvis CT 07/12/22 13:42 IMPRESSION: Moderate-severe biliary dilatation secondary to a 9 mm stone or mass in the distal common duct. Dilated gallbladder and cystic duct with pericholecystic fluid and edema in the nichole hepatis, suggesting acute cholecystitis. Mild acute pancreatitis. Colonic diverticulosis without acute diverticulitis. Small hepatic and renal cysts. Electronically Signed: Lily Diallo MD at 16:05 EDT , Chest X-Ray 07/12/22 21:06 IMPRESSION: Mild chronic bibasilar interstitial thickening. No acute cardiopulmonary pathology Electronically Signed: Hever Potts MD at 22:40 EDT , Physical Exam Const Constitutional Narrative: on phone. appeared appropriate. did not wish to interact with me. Assessment & Plan Assessment/Plan (1) Cholelithiasis with cholecystitis and obstruction: PLAN: Acute severe cholecystitis and acute pancreatitis due to choledocholithiasis: CT abdomen findings individually reviewed and agreed with the report. Mgmt per surgery IV fluid normal saline at 125 mill per hour. Patient is on cefotetan. NPO. Plan is for ERCP today when lap vicky on coming Wednesday. Liver chemistry, total bilirubin, leukocytosis with left shift and lipase are elevated. UA is abnormal, but looks contaminated as squamous epithelial cell 25-50 cells, WBC 25-50 cells, RBC 5-10, LE 500 but nitrite negative. Patient does not have dysuria therefore, I do not think patient has UTI (2) Hypokalemia: PLAN: Improved Potassium is 2.3 in ED. On IV KCl 40 mill equivalent bolus. Magnesium WNL. replace PLAN: Plan Chronic conditions: Hypertension: At home, patient is on hydrochlorothiazide- triamterene which is held. Blood pressure currently is normal. 123/63, heart rate 104/min patient mild sinus tachycardia due to inflammation, acute cholecystitis, infection and pain. Monitor BP. Hydralazine 5 mg IV every 4 hourly as needed for systolic blood pressure more than 160 mmHg Dyslipidemia: LDL 136 elevated HDL low 39. Patient not on any statin. When patient is allowed oral can start on atorvastatin 40 mg daily. VTE prophylaxis moderate risk Heparin 5000 units subcutaneous 3 times daily. Hold the morning dose prior to ERCP on Wednesday and lap vicky on Wednesday Living will/advanced directive/end of life care: Patient does not have living will or advanced directive. Her is next to kin present in the room. After discussion of benefits/risks procedures involved with full code, DNR CC arrest and DNR CC, the patient and her opted for full code. For the present hospitalization, patient and her do want artificial life support including intubation, tube feed, ventilator and/chest compression, central venous catheter, vasopressor and DC shock if needed. They will discuss in detail about future elements of advanced directive in detail with PCP later on. Charges/Coding Visit Charges Inpatient E&M: 66937 [facility] Hosp L1
--- NOTE | 2022-07-13 10:15 | CASEMGMT ---
KATIA CASTANO Assessment: Face to Face with pt for initial transition planning/care coordination assessment. RN OMAIRA introduced self and role at [facility], pt voices understanding and consents to assessment. Pt is A/O x4 and answers all questions appropriately at this time. Pt lying in bed in no distress with at bedside. Care providers, pharmacy, and demographics verified/updated. Admitting Dx: cholelithiasis with obstruction PCP:Duong Specialists:Pt denies. Preferred Pharmacy: [facility] Insurance: [employer] Prescription Benefit: no LW/HPOA: Pt denies having a LW/DPOA and denies need for info regarding AD. LNOK: Ken HernandezSanti, Living Arrangements: Pt lives with and dtr in a two story house with 3 steps to enter. Pt reports she is I in ADL's and denies concerns at home. Transportation: Pt hires drivers for transportation. DME/HHC/SNF: Pt has a cane, FWW and crutches at home. Pt typically does not use AD. Pt denies previous HHC or SNF stays. Pt states no concerns with going home at time of dc. She denies need for any therapy for strengthening although states she was getting weak at home. She states she will do therapy on her own if needed. She is aware that should she change her mind to notify the RN CM. Pt states no further concerns/needs. CM to follow. Advised pt to ask CM if any further question/concerns/needs arise, voices understanding. Pt Goal: Home Plan: Home
[2022-07-13] MEDS: Potassium Chloride 10mEq/100mL 10 MEQ/100 ML IV.SOLN. 100 MEQ IV BOLUS ×4 (11:45→18:18)
[2022-07-13] MEDS: Lactated Ringers 1,000 ML 15 ML IV (11:48)
--- NOTE | 2022-07-13 14:23 | OP.ERCP_ITS ---
Patient Name: Usha Hancock Procedure Date: 07/13/2022 1:33 PM Date of : 1950 Age: 71 Procedure: ERCP Indications: Jaundice, Elevated liver enzymes Providers: August Parekh MD Medicines: General Anesthesia Patient Profile: This is a 71 year old female. Refer to note in patient chart for documentation of history and physical. Complications: No immediate complications. Estimated blood loss: Minimal. Procedure: Pre-Anesthesia Assessment: - Prior to the procedure, a History and Physical was performed, and patient medications and allergies were reviewed. The patient's tolerance of previous anesthesia was also reviewed. The risks and benefits of the procedure and the sedation options and risks were discussed with the patient. All questions were answered, and informed consent was obtained. Prior Anticoagulants: The patient has taken no previous anticoagulant or antiplatelet agents. After reviewing the risks and benefits, the patient was deemed in satisfactory condition to undergo the procedure. After obtaining informed consent, the scope was passed under direct vision. Throughout the procedure, the patient's blood pressure, pulse, and oxygen saturations were monitored continuously. The Duodenoscope was introduced through the mouth, and advanced to the duodenum and used to inject contrast into the bile duct. The ERCP was accomplished without difficulty. The patient tolerated the procedure well. Scope In: 2:02:32 PM Scope Out: 2:13:12 PM Total Procedure Duration Time 0 hours 10 minutes 40 seconds Findings: A 0.035 inch x 260 cm straight Dreamwire was passed into the biliary tree. The sphincterotome was passed over the guidewire and the bile duct was then deeply cannulated. Contrast was injected. Opacification of the main bile duct was seen. The main bile duct was dilated. Biliary sphincterotomy was made with a monofilament sphincterotome using ERBE electrocautery. There was no post-sphincterotomy bleeding. The biliary tree was swept with a 15 mm balloon starting at the bifurcation. Sludge was swept from the duct. All stones were removed. Pus was swept from the duct. The endoscope was withdrawn from the patient. Impression: - The entire main bile duct was dilated. - Choledocholithiasis was found. Complete removal was accomplished by biliary sphincterotomy and balloon extraction. - A biliary sphincterotomy was performed. - The biliary tree was swept and pus was found. Recommendation: - [facility]. Procedure Code(s): --- Professional --- 78693, Endoscopic retrograde cholangiopancreatography (ERCP); with removal of calculi/debris from biliary/pancreatic duct(s) 07014, Endoscopic retrograde cholangiopancreatography (ERCP); with sphincterotomy/papillotomy Diagnosis Code(s): --- Professional --- K80.50, Calculus of bile duct without cholangitis or cholecystitis without obstruction R17, Unspecified jaundice R74.8, Abnormal levels of other serum enzymes K83.8, Other specified diseases of biliary tract CPT copyright 2017 [employer]. All rights reserved. The codes documented in this report are preliminary and upon orthopedic coder review may be revised to meet current compliance requirements. August Parekh MD 07/13/2022 2:22:58 PM This report has been signed electronically. Number of Addenda: 0 Note Initiated On: 07/13/2022 1:33 PM
--- NOTE | 2022-07-13 14:23 | OP.CCLET_ITS ---
07/13/2022 Bari Watters Re : ERCP procedure for Usha Hancock Dear Duong This procedure was performed on Wednesday, July 13, 2022. My impressions and recommendations are as follows: Impressions : - The entire main bile duct was dilated. - Choledocholithiasis was found. Complete removal was accomplished by biliary sphincterotomy and balloon extraction. - A biliary sphincterotomy was performed. - The biliary tree was swept and pus was found. Recommendations : - [facility]. My findings are described in the full procedure note, which is enclosed. If I can be of further assistance, please feel free to contact me at Doctor phone number(s): , Work: . Sincerely, August Parekh MD 07/13/2022 2:22:58 PM This report has been signed electronically.
[2022-07-13] MEDS: Heparin Injection (Vial) 5,000 UNIT/ML VIAL 5000 UNIT SC (21:30)
[2022-07-14] VITALS (14 sets, daily range): BP systolic 93–156; BP diastolic 55–96; PULSE 48–98; RESP 16–18; TEMP 36.4–36.7; O2SAT 92–99; BMI 24.7
[2022-07-14] MEDS: 0.9% Normal Saline 1,000 ML 125 ML IV ×3 (02:51→17:15)
[2022-07-14] MEDS: Ketorolac 15 MG/ML Vial IV ×3 (05:54→21:40)
[2022-07-14 06:23] LABS: Absolute Lymphocyte Count 0.83 X10^3/uL (0.83-4.51); Absolute Neutrophil Count 9.6 X10^3/uL (2.0-7.7); Basophil# 0.01 X10^3/uL; Basophil% 0.1 % (0-1); Hematocrit 36.4 % (37-47); Hemoglobin 12.5 g/dL (12.0-15.0); Lymphocyte # 0.83 X10^3/ul (0.83-4.51); Lymphocyte % 7.8 % (19-41); Mean Corp Hgb Conc 34.3 g/dL (32-36); Mean Corpuscular Hgb 30.9 pg (27.0-32.0); Mean Corpuscular Volume 89.9 fL (81-99); Mean Platelet Vol. 10.6 fl (6.2-12.0); Monocyte# 0.19 X10^3/uL; Monocyte% 1.8 % (0-10); NRBC Flagged by Analyzer 0 % (0-5); Neutrophil # 9.58 X10^3/uL (2.7-7.7); Neutrophil % 89.7 % (47-70); Platelet Count 157 K/mm3 (150-450); RBC Distribution Width CV 14.6 % (11.6-14.6); RBC Distribution Width SD 48.1 fl (35.1-43.9); Red Blood Count 4.05 M/mm3 (4.2-5.4); White Blood Count 10.7 K/mm3 (4.4-11.0)
[2022-07-14 06:47] LABS: ALB/GLOB Ratio 0.5 RATIO (0.9-2.4); AST(SGOT) 46 U/L (15-37); Alanine Aminotransfer ALT/SGPT 137 U/L (13-56); Albumin, Serum 2.3 g/dL (3.2-5.0); Alkaline Phosphatase 236 U/L (45-117); Anion Gap 5 (5-15); BUN 20 mg/dL (7-18); BUN/Creat Ratio 19.2 RATIO (10-20); CPK Total, Creatine Kinase 50 U/L (26-192); Calcium,Total 7.9 mg/dL (8.5-10.1); Chloride 106 mmol/L (98-107); Creatinine, Serum 1.04 mg/dL (0.55-1.02); EST Glomerular Filtration Rate 56 mL/min (>60); Est Glom Filt Rate - Afr Amer 67 mL/min (>60); Estimated Creatinine Clearance 40.38 ml/min; Globulin 4.2 g/dL (2.2-4.2); Glucose 199 mg/dL (74-106); Lipase 799 U/L (73-393); Potassium 3.3 mmol/L (3.5-5.1); Protein, Total 6.5 g/dL (6.4-8.2); Sodium Level 139 mmol/L (136-145)
--- NOTE | 2022-07-14 07:10 | PN.HOSP_ITS ---
Subjective Subjective Abdominal pain much improved post ERCP. Objective Data Objective Data Vital Signs: Vital Signs Temp Pulse Resp BP Pulse Ox O2 Del Method 36.6 C 60 16 100/64 94 Room Air 07/14/22 03:02 07/14/22 03:02 07/14/22 03:02 07/14/22 03:02 07/14/22 03:02 07/14/22 03:02 Oxygen Delivery Method Room Air Weight: 61.4 kg Body Mass Index (BMI) 10.5 Intake & Output: Intake and Output for Last 24 Hours 07/12/22 07/13/22 07/14/22 23:59 23:59 23:59 Intake Total 500 / 500 4409.3333 / 4409.3333 Output Total 800 / 800 Balance 500 / 500 3609.3333 / 3609.3333 Lab / Micro Data Result Diagrams: 07/14/22 06:01 07/14/22 06:01 Labs: Laboratory Results - last 24 hr 07/13/22 06:20: WBC 16.8 H, RBC 4.18 L, Hgb 13.6, Hct 36.4 L, MCV 87.1, MCH 32.5 H, MCHC 37.4 H D, RDW Std Deviation 44.9 H, RDW Coeff of Katherin 14.0, Plt Count 192, MPV 10.8, Immature Gran % (Auto) 0.600, Neut % (Auto) 90.1 H, Lymph % (Auto) 3.9 L, [place] % (Auto) 4.5, Eos % (Auto) 0.6, Baso % (Auto) 0.3, Absolute Neuts (auto) 15.1 H, Absolute Lymphs (auto) 0.65 L, Nucleated RBC % 0 07/13/22 06:20: Sodium 137, Potassium 3.2 L, Chloride 101, Carbon Dioxide 28.0, Anion Gap 8, BUN 12, Creatinine 0.94, Estim Creat Clear Calc 44.67, Est GFR (MDRD) Af Amer 75, Est GFR (MDRD) Non-Af 62, BUN/Creatinine Ratio 12.7, Glucose 95, Calcium 7.7 L, Total Bilirubin 6.10 H, AST 92 H, ALT 183 H, Alkaline Phosphatase 280 H, Total Creatine Kinase 62, Total Protein 6.2 L, Albumin 2.4 L, Globulin 3.8, Albumin/Globulin Ratio 0.6 L 07/13/22 06:20: Hemoglobin A1c 5.5 07/13/22 06:20: Phosphorus 3.8 07/13/22 06:20: APTT 30.2 07/13/22 06:20: Lipase 6858 H 07/13/22 11:13: Potassium 3.0 L 07/14/22 06:01: WBC 10.7, RBC 4.05 L, Hgb 12.5, Hct 36.4 L, MCV 89.9, MCH 30.9, MCHC 34.3 D, RDW Std Deviation 48.1 H, RDW Coeff of Katherin 14.6, Plt Count 157, M PV 10.6, Immature Gran % (Auto) 0.600, Neut % (Auto) 89.7 H, Lymph % (Auto) 7.8 L, Assumption % (Auto) 1.8, Eos % (Auto) 0.0, Baso % (Auto) 0.1, Absolute Neuts (auto) 9.6 H, Absolute Lymphs (auto) 0.83, Nucleated RBC % 0 07/14/22 06:01: Sodium 139, Potassium 3.3 L, Chloride 106, Carbon Dioxide 28.0, Anion Gap 5, BUN 20 H, Creatinine 1.04 H, Estim Creat Clear Calc 40.38, Est GFR (MDRD) Af Amer 67, Est GFR (MDRD) Non-Af 56 L, BUN/Creatinine Ratio 19.2, Glucose 199 H, Calcium 7.9 L, Total Bilirubin 1.80 H, AST 46 H, ALT 137 H, Alkaline Phosphatase 236 H, Total Creatine Kinase 50, Total Protein 6.5, Albumin 2.3 L, Globulin 4.2, Albumin/Globulin Ratio 0.5 L, Lipase 799 H Radiography Diagnostic Testing: Radiology Impression Endo Retro Cholangiopancreatogram 07/13/22 07:11 IMPRESSION: Fluoroscopic assistance images were obtained. Pertinent findings noted above. Electronically Signed: Isaías Linda MD at 14:45 EDT , Physical Exam Const alert and no apparent distress Resp normal respiratory effort, no retractions, no use of accessory muscles and clear to auscultation bilaterally Cardio regular rate, regular rhythm, S1 normal heart sound and S2 normal heart sound GI normal to inspection, nondistended, normoactive bowel sounds and soft to palpation Assessment & Plan Assessment/Plan (1) Cholelithiasis with cholecystitis and obstruction: QUALIFIERS: Cholecystitis acuity: acute Cholelithiasis location: bile duct Qualified Code(s): K80.43 - Calculus of bile duct with acute cholecystitis with obstruction PLAN: Acute severe cholecystitis and acute pancreatitis due to choledocholithiasis: CT abdomen findings individually reviewed and agreed with t he report. Mgmt per surgery IV fluid normal saline at 125 mill per hour. Patient is on cefotetan. NPO. ERCP on 07/13. Complete removal of choledocholithiasis. Sphincterotomy. Liver chemistry, total bilirubin, leukocytosis with left shift and lipase are elevated. UA is abnormal, but looks contaminated as squamous epithelial cell 25-50 cells, WBC 25-50 cells, RBC 5-10, LE 500 but nitrite negative. Patient does not have dysuria therefore, I do not think patient has UTI (2) Hypokalemia: PLAN: Improved Potassium is 2.3 in ED. On IV KCl 40 mill equivalent bolus. Magnesium WNL. replace PLAN: Plan Chronic conditions: * Hypertension: At home, patient is on hydrochlorothiazide- triamterene which is held. Blood pressure currently is normal. 123/63, heart rate 104/min patient mild sinus tachycardia due to inflammation, acute cholecystitis, infection and pain. Monitor BP. Hydralazine 5 mg IV every 4 hourly as needed for systolic blood pressure more than 160 mmHg * Dyslipidemia: LDL 136 elevated HDL low 39. Patient not on any statin. When patient is allowed oral can start on atorvastatin 40 mg daily. VTE prophylaxis moderate risk Heparin 5000 units subcutaneous 3 times daily. Hold the morning dose prior to ERCP on Wednesday and lap vicky on Wednesday Living will/advanced directive/end of life care: Patient does not have living will or advanced directive. Her is next to kin present in the room. After discussion of benefits/risks procedures involved with full code, DNR CC arrest and DNR CC, the patient and her opted for full code. For the present hospitalization, patient and her do want artificial life support including intubation, tube feed, ventilator and/chest compression, central venous catheter, vasopressor and DC shock if needed. They will discuss in detail about future elements of advanced directive in detail with PCP later on. Charges/Coding Visit Charges Inpatient E&M: 98410 Subs Hosp L2
[2022-07-14] MEDS: Potassium Chloride 10mEq/100mL 10 MEQ/100 ML IV.SOLN. 100 MEQ IV BOLUS ×4 (08:43→12:07)
--- NOTE | 2022-07-14 14:05 | GALL_PTH ---
PATIENT: SANDRA WAYNE LOC: MS3 U#:[id number] AGE/SX: 71/F ROOM: [facility] RE07/12/[address]: Dr. Romy Carlos MD : 1950 BED: 1 DIS: 07/15/2022 SPEC #: [id number] RECD: 07/14/22 16:04 STATUS: LEONCIO QUESADA #: [id number] MATTHEW: 07/14/22 14:[address]: Romy Carlos DEPT: SURGICAL PATHOLOGY RECD BY: Henry Crenshaw ENTERED: 07/15/22 07:29 SP TYPE: CHERI LATIF DR: DO Dr. Rj Montenegro MD Tissues: Gallbladder, NOS Procedures: Surgery Specimen Level III HEADER OPERATION: Laparoscopic, Cholecystectomy with IOC PRE-OP DIAGNOSIS: Cholecystitis, cholelithiasis, with obstruction TISSUE SUBMITTED: Gallbladder MICROSCOPIC DIAGNOSIS Gallbladder, Cholecystectomy: Acute and chronic cholecystitis. Reactive epithelial changes. See comment. SJ 07/16/22 COMMENT No stones are identified in the container or in the gallbladder. MICROSCOPIC DESCRIPTION Slides are reviewed. GROSS DESCRIPTION Received is one container labeled with the patient's name and designated gallbladder. The specimen consists of an open gallbladder measuring 6.0 cm in length and up to 2.8 cm in diameter. The external surface is pink-gu, smooth and glistening for the most part. Focally it is granular, hemorrhagic and contains cautery artifact. The gallbladder contains bile but no stones. The mucosa is bile-stained and without any mass lesions. The gallbladder wall measures up to 0.3 cm in thickness. Package Collector sections from the gallbladder and the cystic duct are submitted in one cassette. / AM:radha 07/15/22 TC:2 [facility]: [id number]
[2022-07-14] MEDS: Lactated Ringers 1,000 ML 15 ML IV (14:45)
[2022-07-14] MEDS: Bupivacaine 0.25% 30 ML Vial (15:06)
--- NOTE | 2022-07-14 15:10 | PCM.OPRPT ---
Report of Operation Date of Procedure: 07/14/22 Pre-Operative Diagnosis: cholelithiasis with obstruction and acute cholecystitis, s/p ERCP for ascending cholangitis Post-Operative Diagnosis: same Surgery/Procedure Performed:: laparoscopic cholecystectomy Description of Surgical Findings:: pus in gallbladder Surgeon: Romy Carlos web applications developer: Miguel Angel Osborne Type of Anesthesia: General Anesthesiologist: Marques Og Specimen's removed: gallbladder and contents Estimated Blood Loss (mL): < 10 ml Fluids Replaced: 1000 ml RL Description of Procedure: After informed consent was given, the patient was brought to the Operating Room. Appropriate time out protocol was followed. The patient was placed in the supine position. The patient was then placed under general endotracheal anesthesia by the anesthesia provider. The abdomen was then prepped with a sterile surgical skin preparation and sterile surgical drapes were placed. An area inferior to the umbilical dimple was grasped with penetrating clamps and the skin and subcutaneous tissues were infiltrated with local anesthetic. A skin incision was then made with a 15 blade scalpel in a vertical fashion. Dissection was then done, of note, the patient had mesh in the periumbilical area. The anterior abdominal wall was elevated and a Veress needle was carefully inserted into the intraabdominal cavity. It was checked to be in the proper position with a normal saline drop test. A CO2 pneumoperitoneum was then created. Once this was achieved, then the Veress needle was removed and an 11mm trocar was placed in its stead. A 10mm laparoscope was then inserted into the trocar and careful attention was directed to the intraabdominal contents. There were adhesions around the periumbilical area, probably due to the previous umbilical hernia repair. There was no evidence of injury to any intraabdominal organs from insertion of the Veress needle or the trocar. Under direct visualization, a 5mm subxiphoid trocar and two lateral 5mm right subcostal trocars were placed. The skin and subcutaneous tissues at these sites were infiltrated with local anesthestic prior to placement of these trocars. Attention was then directed to the right upper quadrant of the abdomen. Graspers were placed in the lateral trocars to grasp the distal aspect of the gallbladder and direct it cephalad and to grasp the gallbladder at Rodriguez?s pouch and direct it laterally. The gallbladder appeared grossly distended. There were omental adhesions to the free surface of the gallbladder. Blunt dissection then began on the gallbladder continuing down to the area of the triangle of Calot to bluntly dissect the free surface of the gallbladder from the adhesions. This was done down to the level of the cystic duct. Any hemorrhage was controlled with electrocautery. Blunt dissection was then done to isolate out the cystic duct. The neck of the gallbladder was identified and blunt dissection continued to dissect out a segment of the cystic duct. A clip was then placed on the neck of the gallbladder. Two clips were placed proximally. The cystic duct was then transected. The cystic artery was visualized and bluntly isolated and then two clips were placed proximally and one clip distally and then it was transected between the proximal and distal clips. The gallbladder was then from the liver bed using electrocautery. Once from the liver bed, it was brought out via the umbilical port in an Endobag. Of note, it was filled with purulent fluid. It was then forwarded to pathology for analysis. The liver bed was carefully examined. There was no evidence of bile leakage or bleeding. The cystic duct stump and cystic artery stump had their clips intact and there was no evidence of bile leakage or bleeding. The remainder of the abdomen was grossly normal except for the above mentioned adhesions. The CO2 was released and all trocars removed intact. The periumbilical fascia was approximated with a [id number] 0 prolene suture. All skin incision were closed with 4-0 monocryl in a subdermal fashion. Cavilol and Steristrips were used to reinforce the skin closure. Sterile dressings were applied to all wounds. Sponge, needle and instrument count was verified and correct at time of skin closure. The patient was extubated and brought to the Recovery Room in stable condition. Complications none noted Admit VTE Documentation VTE Present on Admission: Yes VTE Mechan Device Prophylaxis: SCD's
[2022-07-14] MEDS: HYDROmorphone 0.5 MG/0.5 ML SYRINGE IV (15:45)
[2022-07-14] MEDS: Acetaminophen 325 MG Tablet 650 MG PO (19:44)
[2022-07-14] MEDS: Heparin Injection (Vial) 5,000 UNIT/ML VIAL 5000 UNIT SC (21:41)
[2022-07-15 00:57] VITALS: BP 118/73; PULSE 56; RESP 16; TEMP 36.6; O2SAT 94
[2022-07-15] MEDS: 0.9% Normal Saline 1,000 ML 125 ML IV (02:00)
[2022-07-15 04:57] VITALS: BP 119/67; PULSE 52; RESP 16; TEMP 36.5; O2SAT 96
[2022-07-15] MEDS: Ketorolac 15 MG/ML Vial IV (05:38)
[2022-07-15] MEDS: Heparin Injection (Vial) 5,000 UNIT/ML VIAL 5000 UNIT SC (05:38)
[2022-07-15 06:57] LABS: Absolute Neutrophil Count 12.8 X10^3/uL (2.0-7.7); Basophil# 0.04 X10^3/uL; Basophil% 0.3 % (0-1); Hematocrit 36.5 % (37-47); Hemoglobin 12.1 g/dL (12.0-15.0); Mean Corp Hgb Conc 33.2 g/dL (32-36); Mean Corpuscular Hgb 30.3 pg (27.0-32.0); Mean Corpuscular Volume 91.5 fL (81-99); Mean Platelet Vol. 11.4 fl (6.2-12.0); Monocyte# 0.53 X10^3/uL; Monocyte% 3.5 % (0-10); NRBC Flagged by Analyzer 0 % (0-5); Neutrophil # 12.81 X10^3/uL (2.7-7.7); Neutrophil % 85.3 % (47-70); Platelet Count 190 K/mm3 (150-450); RBC Distribution Width CV 15.4 % (11.6-14.6); RBC Distribution Width SD 52.1 fl (35.1-43.9); Red Blood Count 3.99 M/mm3 (4.2-5.4)
--- NOTE | 2022-07-15 07:08 | DCINST_ITS ---
Discharge Instructions Follow Up Care Test Results: Test results from this visit will be discussed in further detail at your follow- up appointment, if applicable. Discharge Plan Admission Admit Date/Time: 07/12/22 17:51 Attending Provider: Romy Carlos Primary Care Provider: Bari Watters Consulting Providers: Rj Yates Instructions Additional Instructions / Restrictions: Recommended pain control regimen - May take 600 mg ibuprofen (Motrin) and then in 3-4 hours, may take 650 mg acetaminophen (Tylenol), then in 3-4 hours may take 600 mg ibuprofen, then in 3- 4 hours may take 650 mg acetaminophen and so on for 2-3 days May take narcotic pain medication for pain that is not controlled by above and at night for comfort through the night Leave dressings in place May shower, do not scrub in the areas of the dressings as they may unravel. If they become overly soiled you may remove them but leave incision site open to air. Do not soak - no tub baths/swimming Ice applied to areas of discomfort may help No lifting/pushing/pulling greater than 20 pounds for a month. Regular diet as tolerated, drink plenty of fluids. Avoid carbonated beverages for a few days as this will cause abdominal bloating and thus discomfort after our surgery. Please call my office for an appointment to see me in 1-2 weeks. Office number is If any questions, please call my office at and ask the pulp making plant operator for the general surgery nurses desk Discharge Orders/Prescriptions Prescriptions: New hydrocodone-acetaminophen 5-325 mg tablet 1 tab PO Q8H 5 Days Qty: 15 0RF No Action triamterene-hydrochlorothiazid [Maxzide-25mg] 37.5-25 mg Tablet 1 tab PO DAILY Referrals / Follow Up: Bari Watters, [Primary Care Provider] -
--- NOTE | 2022-07-15 07:08 | PN.SURG_ITS ---
Subjective Subjective patient feeling much improved Objective Data Objective Data Vital Signs: Vital Signs Temp Pulse Resp BP Pulse Ox O2 Del Method O2 Flow Rate 97.7 F L 52 L 16 119/67 96 Room Air 2 07/15/22 04:57 07/15/22 04:57 07/15/22 04:57 07/15/22 04:57 07/15/22 04:57 07/15/22 04:57 07/14/22 16:15 Oxygen Flow Rate (L/min) 2 Oxygen Delivery Method Room Air Weight: 66.1 kg Body Mass Index (BMI) 24.7 Intake & Output: Intake and Output for Last 24 Hours 07/13/22 07/14/22 07/15/22 23:59 23:59 23:59 Intake Total 4409.3333 / 4409.3333 3062.67 / 3062.67 433.33 / 433.33 Output Total 800 / 800 400 / 400 Balance 3609.3333 / 3609.3333 2662.67 / 2662.67 433.33 / 433.33 Lab / Micro Data Attestation: I reviewed the patient's lab results. Result Diagrams: 07/15/22 06:10 07/15/22 06:10 Labs: Laboratory Results - last 24 hr 07/12/22 14:20: Urine Color Jana, Urine Clarity Clear, Urine pH 6.0, Ur Specific [place] 1.015, Urine Protein 30 H, Urine Glucose (UA) Normal, Urine Ketones 15 H, Urine Occult Blood 150 H, Urine Nitrite Negative, Urine Bilirubin 3 H, Urine Urobilinogen 4 H, Ur Leukocyte Esterase 500 H, Urine RBC 5-10 SEEN, Urine WBC 25-50 SEEN, Ur Squamous Epith Cells 25-50 SEEN, Urine Bacteria 1+, WBC Casts 0-5 SEEN, Urine Mucus 0 SEEN 07/15/22 06:10: WBC 15.0 H, RBC 3.99 L, Hgb 12.1, Hct 36.5 L, MCV 91.5, MCH 30.3, MCHC 33.2, RDW Std Deviation 52.1 H, RDW Coeff of Katherin 15.4 H, Plt Count 190, MPV 11.4, Immature Gran % (Auto) 2.900 H, Neut % (Auto) 85.3 H, Lymph % (Auto) 8.0 L, [place] % (Auto) 3.5, Eos % (Auto) 0.0, Baso % (Auto) 0.3, Absolute Neuts (auto) 12.8 H, Absolute Lymphs (auto) 1.20, Nucleated RBC % 0 Micro: Microbiology 07/12/22 14:20 Urine, Clean Catch Urine Culture - Final Mixed Gram Pos & Gram Neg Org Physical Exam Const alert and oriented x3 General Appearance: cooperative Resp normal respiratory effort Effort and Inspection: able to speak in complete sentences GI GI Narrative: abdomen is soft and benign dressings intact, minimal stain on periumbilical site Assessment & Plan Assessment/Plan (1) Status post laparoscopic cholecystectomy: PLAN: see below PLAN: Plan status post laparoscopic cholecystectomy Discharge to home given elevated WBC, will discharge on antibiotics for 5 days Patient to follow up with me in the office in 1-2 weeks.
[2022-07-15 07:20] VITALS: O2SAT 95
[2022-07-15 07:26] LABS: ALB/GLOB Ratio 0.6 RATIO (0.9-2.4); AST(SGOT) 33 U/L (15-37); Alanine Aminotransfer ALT/SGPT 102 U/L (13-56); Albumin, Serum 2.1 g/dL (3.2-5.0); Alkaline Phosphatase 197 U/L (45-117); Anion Gap 6 (5-15); BUN 25 mg/dL (7-18); BUN/Creat Ratio 23.4 RATIO (10-20); Calcium,Total 8.3 mg/dL (8.5-10.1); Chloride 111 mmol/L (98-107); Creatinine, Serum 1.07 mg/dL (0.55-1.02); EST Glomerular Filtration Rate 54 mL/min (>60); Est Glom Filt Rate - Afr Amer 65 mL/min (>60); Estimated Creatinine Clearance 39.25 ml/min; Globulin 3.8 g/dL (2.2-4.2); Glucose 136 mg/dL (74-106); Potassium 4.1 mmol/L (3.5-5.1); Protein, Total 5.9 g/dL (6.4-8.2); Sodium Level 141 mmol/L (136-145)
[2022-07-15 08:01] VITALS: BP 131/62; PULSE 51; RESP 17; TEMP 36.4; O2SAT 97
--- NOTE | 2022-07-15 08:16 | PCM.DC.BLA ---
Discharge Summary Date of Admission: 07/12/22 Date of Discharge: 07/15/22 Summary: Usha Hancock is a 71 y/o [employer] female who presented with abdominal pain. Workup in the ED revealed cholelithiasis, choledocholithiasis, cholecystitis by CT scan. Laboratory studies revealed choledocholithiasis with biliary obstruction and pancreatitis. Internal medicine was consulted for patient's perioperative medical management. She underwent ERCP on 07/13/2022 and was found to have ascending cholangitis. This procedure greatly relieved her abdominal pain. She underwent laparoscopic cholecystectomy on 07/14/2022 and tolerated procedure well. She was discharged on 07/14/2022, tolerating diet, afebrile. Discharged with po antibiotics and pain medications Meaningful Use Info Meaningful Use Diagnoses (Choose all that apply): None applicable Discharge Plan Admission Admit Date/Time: 07/12/22 17:51 Attending Provider: Romy Carlos Primary Care Provider: Bari Watters Consulting Providers: Rj Yates Instructions Additional Instructions / Restrictions: Recommended pain control regimen - May take 600 mg ibuprofen (Motrin) and then in 3-4 hours, may take 650 mg acetaminophen (Tylenol), then in 3-4 hours may take 600 mg ibuprofen, then in 3-4 hours may take 650 mg acetaminophen and so on for 2-3 days May take narcotic pain medication for pain that is not controlled by above and at night for comfort through the night Leave dressings in place May shower, do not scrub in the areas of the dressings as they may unravel. If they become overly soiled you may remove them but leave incision site open to air. Do not soak - no tub baths/swimming Ice applied to areas of discomfort may help No lifting/pushing/pulling greater than 20 pounds for a month. Regular diet as tolerated, drink plenty of fluids. Avoid carbonated beverages for a few days as this will cause abdominal bloating and thus discomfort after our surgery. Please call my office for an appointment to see me in 1-2 weeks. Office number is If any questions, please call my office at and ask the flight communications operator for the general surgery nurses desk Discharge Orders/Prescriptions Prescriptions: New hydrocodone-acetaminophen 5-325 mg tablet 1 tab PO Q8H 5 Days Qty: 15 0RF amoxicillin-pot clavulanate [Augmentin] 500-125 mg tablet 1 tab PO Q12H Qty: 10 0RF No Action triamterene-hydrochlorothiazid [Maxzide-25mg] 37.5-25 mg Tablet 1 tab PO DAILY Referrals / Follow Up: Bari Watters DO [Primary Care Provider] - Disposition Discharge Orders: Discharge Patient (Routine); Ordered 07/15/22 Ordered By: Dr. Romy Carlos
[2022-07-15 09:03] VITALS: O2SAT 90
--- NOTE | 2022-07-15 09:43 | PN.HOSP_ITS ---
Subjective Subjective Feels well. No new complaints. Tolerating PO. Objective Data Objective Data Vital Signs: Vital Signs Temp Pulse Resp BP Pulse Ox O2 Del Method O2 Flow Rate 36.4 C L 51 L 17 131/62 H 97 Room Air 2 07/15/22 08:01 07/15/22 08:01 07/15/22 08:01 07/15/22 08:01 07/15/22 08:01 07/15/22 08:06 07/14/22 16:15 Oxygen Flow Rate (L/min) 2 Oxygen Delivery Method Room Air Weight: 66.1 kg Body Mass Index (BMI) 24.7 Intake & Output: Intake and Output for Last 24 Hours 07/13/22 07/14/22 07/15/22 23:59 23:59 23:59 Intake Total 4409.3333 / 4409.3333 3062.67 / 3062.67 433.33 / 433.33 Output Total 800 / 800 400 / 400 Balance 3609.3333 / 3609.3333 2662.67 / 2662.67 433.33 / 433.33 Lab / Micro Data Result Diagrams: 07/15/22 06:10 07/15/22 06:10 Labs: Laboratory Results - last 24 hr 07/15/22 06:10: Sodium 141, Potassium 4.1, Chloride 111 H, Carbon Dioxide 24.0, Anion Gap 6, BUN 25 H, Creatinine 1.07 H, Estim Creat Clear Calc 39.25, Est GFR (MDRD) Af Amer 65, Est GFR (MDRD) Non-Af 54 L, BUN/Creatinine Ratio 23.4 H, Glucose 136 H, Calcium 8.3 L, Total Bilirubin 1.10 H, AST 33, ALT 102 H, Alkaline Phosphatase 197 H, Total Protein 5.9 L, Albumin 2.1 L, Globulin 3.8, Albumin/Globulin Ratio 0.6 L 07/15/22 06:10: WBC 15.0 H, RBC 3.99 L, Hgb 12.1, Hct 36.5 L, MCV 91.5, MCH 30.3, MCHC 33.2, RDW Std Deviation 52.1 H, RDW Coeff of Katherin 15.4 H, Plt Count 1 90, MPV 11.4, Immature Gran % (Auto) 2.900 H, Neut % (Auto) 85.3 H, Lymph % (Auto) 8.0 L, [place] % (Auto) 3.5, Eos % (Auto) 0.0, Baso % (Auto) 0.3, Absolute Neuts (auto) 12.8 H, Absolute Lymphs (auto) 1.20, Nucleated RBC % 0 Micro: Microbiology 07/12/22 14:20 Urine, Clean Catch Urine Culture - Final Mixed Gram Pos & Gram Neg Org Physical Exam Const alert and oriented x3 GI normal to inspection, nondistended, normoactive bowel sounds Neuro Sensorium / Orientation: awake and alert Psych affect normal Assessment & Plan Assessment/Plan (1) Cholelithiasis with cholecystitis and obstruction: QUALIFIERS: Cholelithiasis location: bile duct Cholecystitis acuity: acute Qualified Code(s): K80.43 - Calculus of bile duct with acute cholecystitis with obstruction PLAN: Acute severe cholecystitis and acute pancreatitis due to choledocholithiasis: CT abdomen findings individually reviewed and agreed with the report. Mgmt per surgery IV fluid normal saline at 125 mill per hour. Patient is on cefotetan. NPO. ERCP on 07/13. Complete removal of choledocholithiasis. Sphincterotomy. s/p lap vicky on 07/14 Liver chemistry, total bilirubin, leukocytosis with left shift and lipase are elevated. UA is abnormal, but looks contaminated as squamous epithelial cell 25-50 cells, WBC 25-50 cells, RBC 5-10, LE 500 but nitrite negative. Patient does not have dysuria therefore, I do not think patient has UTI (2) Hypokalemia: PLAN: Resolved Potassium is 2.3 in ED. On IV KCl 40 mill equivalent bolus. Magnesium WNL. replace PLAN: Plan Chronic conditions: * Hypertension: At home, patient is on hydrochlorothiazide- triamterene which is held. Blood pressure currently is normal. 123/63, heart rate 104/min patient mild sinus tachycardia due to inflammation, acute cholecystitis, infection and pain. Monitor BP. Hydralazine 5 mg IV every 4 hourly as needed for systolic blood pressure more than 160 mmHg * Dyslipidemia: LDL 136 elevated HDL low 39. Patient not on any statin. When patient is allowed oral can start on atorvastatin 40 mg daily. VTE prophylaxis moderate risk Heparin 5000 units subcutaneous 3 times daily. Hold the morning dose prior to ERCP on Wednesday and lap vicky on [place] Living will/advanced directive/end of life care: Patient does not have living will or advanced directive. Her is next to kin present in the room. After discussion of benefits/risks procedures involved with full code, DNR CC arrest and DNR CC, the patient and her opted for full code. For the present hospitalization, patient and her do want artificial life support including intubation, tube feed, ventilator and/chest compression, central venous catheter, vasopressor and DC shock if needed. They will discuss in detail about future elements of advanced directive in detail with PCP later on. Medically stable for discharge. Charges/Coding Visit Charges Inpatient E&M: 90281 Subs Hosp L1
--- NOTE | 2022-07-15 10:08 | CASEMGMT ---
RN CM in to pt room, pt sitting up in bed with at bedside. Pt denies any homegoing needs.
--- NOTE | 2022-07-15 10:37 | PHA.DC.MC ---
Pharmacy Service has performed discharge medication reconciliation and counseling for this patient. 1. AUGMENTIN 500 1T PO Q12 X 5 DAYS 2. NORCO 5/325 1T PO Q8H X 5 DAYS The patient's discharge medication list was reviewed for discrepancies and discrepancies were resolved. Home Medications triamterene 37.5 mg-hydrochlorothiazide 25 mg tablet (Maxzide-25mg) 1 tab PO DAILY heart 07/12/22 hydrocodone-acetaminophen 5-325mg 5mg-325mg 1 tab PO Q8H 5 days #15 tabs 07/14/22 amoxicillin 500 mg-potassium clavulanate 125 mg tablet (Augmentin) 1 tab PO Q12H #10 tabs 07/15/22 The patient was counseled on the following discharge medications and changes in medications for homegoing were reviewed. The Reason for Use, instructions for use, and potential side effects were reviewed for all new medications. The patient's questions regarding all of their medications were answered. The patient was able to verbally demonstrate an understanding of their discharge medications. Patient counseled by pharmacy messengerHarrison.
== END 2022-07-15 11:55 | disposition home or self-care (01) | DRG 417 ==
LOC: ED 14:07 → MS3 18:01
PROVIDERS: Anesthesiology; Internal Medicine; Surgery; Admitting Provider Surgery; Emergency Provider Emergency Medicine; PCP Family Medicine; Visit Provider Surgery
PROC: 0FC98ZZ Extirpation of Matter from Common Bile Duct, Via Natural or Artificial Opening Endoscopic (ICD-10-PCS; CPT 43260; principal; 2022-07-13 13:25)
PROC: 0FT44ZZ Resection of Gallbladder, Percutaneous Endoscopic Approach (ICD-10-PCS; CPT 47610; principal; 2022-07-14 13:45)
DX: K80.62 Calculus of gallbladder and bile duct with acute cholecystitis without obstruction (principal); K85.10 Biliary acute pancreatitis without necrosis or infection; E87.6 Hypokalemia; I10 Essential (primary) hypertension; E78.5 Hyperlipidemia, unspecified
CPT/HCPCS: 36415; 71045; 74177; 74330; 80048; 80053; 80076; 81001; 82550; 83036; 83690; 83735; 84100; 84132; 85025; 85730; 87086; 87088; 88304; 93005; 97161; 97166; 97530; 97535; 97802; 99285; J7030; J7040; J7050; J7120; Q9967; A4216; J2405

== ENCOUNTER → 2023-10-27 | Outpatient (CLI) | payer SELFPAY ==
--- NOTE | 2023-10-27 08:47 | RAD_ITS ---
STUDY: X-RAY CHEST REASON FOR EXAM: Female, 73 years old. Persistent cough. TECHNIQUE: Frontal and lateral views of the chest. COMPARISON: June 2022. FINDINGS: Stable cardiomegaly with marked aortic tortuosity and calcification. Prominent central pulmonary arteries, unchanged. Hyperinflation with increased patchy opacities in both bases most compatible with early/developing pneumonia. Marked thoracolumbar scoliosis unchanged. No abnormality of the visualized soft tissue structures of the upper abdomen. RAD/Chest PA and Lateral IMPRESSION: Cardiomegaly, hyperinflation and increased patchy opacities in both bases, left greater than right, most compatible with early/developing pneumonia. Follow-up chest imaging to resolution recommended. Electronically Signed: Braden Dobbs MD at 9:37 EST ,
== END | disposition home or self-care (01) ==
PROVIDERS: PCP Family Medicine; Referring Provider Family Medicine; Visit Provider Family Medicine
DX: R05.3 Chronic cough (principal)
CPT/HCPCS: 71046